=== PATIENT | female | born 1980 | race Caucasian/White ===

== ENCOUNTER 2024-09-08 08:49 | Emergency (ER) | payer SELFPAY ==
[2024-09-08] VITALS (9 sets, daily range): BP systolic 97–157; BP diastolic 69–84
[~2024-09-08] VITALS: Ht 152.4 cm; Wt 73.0 kg
[2024-09-08] MEDS ORDERED: DOXYCYCLINE100 MG PO ×2 (10:21→10:40)
== END 2024-09-08 10:44 | disposition home or self-care (01) | DRG 203 ==
LOC: ED 08:49
DX: J40 Bronchitis, not specified as acute or chronic (principal)